=== PATIENT | female | born 1955 | race Caucasian/White ===

== ENCOUNTER 2016-11-22 22:54 | Emergency (ER) | payer MEDICAID ==
[2016-11-22] MEDS ORDERED: Nitroglycerin 0.4 MG Tab.SL SL ONE ×2 (23:15)
[2016-11-22] MEDS ORDERED: Metoprolol Tartrate 5 MG/5 ML SDV IVPUSH ONE (23:15)
[2016-11-22] MEDS ORDERED: Aspirin 81 MG Tab.Chew PO STA (23:16)
[2016-11-22 23:19] VITALS: BP 157/86
[2016-11-22] MEDS ORDERED: Nitroglycerin 0.4 MG Tab.SL ONE (23:20)
--- NOTE | 2016-11-22 23:21 | EDM.PDOC ---
ED HPI GENERAL MEDICAL PROBLEM - General Chief Complaint: Chest Pain Stated Complaint: CHEST PAIN Time Seen by Provider: 11/22/16 23:04 Source of Information: Reports: Patient, RN Notes Reviewed History Limitations: Reports: No Limitations - History of Present Illness INITIAL COMMENTS - FREE TEXT/NARRATIVE: The patient states that she was woken with central chest pain and entire left upper extremity pain at 22:00 tonight. She describes the pain as sharp. She states that it has been waxing and waning. She has not identified any modifiers. She is unsure if she has shortness of breath. She has had both nausea and emesis, and feels anxious. No diaphoresis. No prior similar symptoms. The patient's PCP is Dr. Christensen. Left Chest Pain Score (Numeric/FACES): 7 - Related Data Allergies Allergy/AdvReac Type Severity Reaction Status Date / Time atorvastatin calcium Allergy Cannot Verified 11/22/16 22:59 [From Lipitor] Remember rosuvastatin calcium Allergy Cannot Verified 11/22/16 22:59 [From Crestor] Remember Sulfa (Sulfonamide Allergy Cannot Verified 11/22/16 22:59 Antibiotics) Remember Home Meds: Home Meds Hydrochlorothiazide 25 mg PO DAILY 02/05/14 [History] Lisinopril 40 mg PO DAILY 02/05/14 [History] amLODIPine Besylate [Amlodipine Besylate] 10 mg PO DAILY 02/05/14 [History] rOPINIRole HCl [Requip] 2 mg PO BEDTIME 02/05/14 [History] Mometasone/Formoterol [Dulera 200-5 MCG] 2 puff INH BID 04/21/15 [History] Past Medical History HEENT History: Reports: Impaired Vision Other HEENT History: Wears Cardiovascular History: Reports: High Cholesterol, Hypertension Respiratory History: Reports: Asthma Gastrointestinal History: Reports: GERD Genitourinary History: Reports: Urinary Incontinence (stress incontinence) 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: - Past Surgical History HEENT Surgical History: Reports: Oral Surgery ([place] teeth extraction) Female Surgical History: Reports: Hysterectomy, Salpingo-Oophorectomy, Other (See Below) (Bladder suspension) Social & Family History - Tobacco Use Smoking Status *Q: Never Smoker - Alcohol Use Alcohol Use History: Yes Days Per Week of Alcohol Use: 0 Alcohol Use Frequency: Socially - Recreational Drug Use Recreational Drug Use: No - Living Situation & Occupation Living situation: Reports: , with Spouse Occupation: Unemployed ED ROS GENERAL - Review of Systems Review Of Systems: See Below Constitutional: Reports: No Symptoms HEENT: Reports: No Symptoms Respiratory: Reports: No Symptoms Cardiovascular: Reports: No Symptoms Endocrine: Reports: No Symptoms GI/Abdominal: Reports: No Symptoms : Reports: No Symptoms Musculoskeletal: Reports: No Symptoms Skin: Reports: No Symptoms Neurological: Reports: No Symptoms Psychiatric: Reports: No Symptoms Hematologic/Lymphatic: Reports: No Symptoms Immunologic: Reports: No Symptoms ED EXAM, GENERAL - Physical Exam Exam: See Below Exam Limited By: No Limitations General Appearance: Alert, WD/WN, Anxious Eye Exam: Bilateral Eye: Normal Inspection Ears: Normal External Exam, Hearing Grossly Normal Nose: Normal Inspection, No Blood Throat/Mouth: Normal Inspection, Normal Lips, Normal Voice, No Airway Compromise Head: Atraumatic, Normocephalic Neck: Normal Inspection, Full Range of Motion Respiratory/Chest: No Respiratory Distress, Lungs Clear, Normal Breath Sounds, No Accessory Muscle Use, Chest Non-Tender Cardiovascular: Normal Peripheral Pulses, Regular Rate, Rhythm, No Edema, No Gallop, No JVD, No Murmur, No Rub Peripheral Pulses: 4+: Radial (L), Radial (R) GI/Abdominal: Normal Bowel Sounds, Soft, Non-Tender, No Organomegaly, No Distention, No Abnormal Bruit, No Mass (Female) Exam: Deferred Rectal (Female) Exam: Deferred Back Exam: Normal Inspection, Full Range of Motion, NT Extremities: Normal Inspection, Normal Range of Motion, No Pedal Edema, Normal Capillary Refill, Other (The patient's left upper extremity is tender to palpation. She is unable to say whether or not it is the same pain that she came to the ED with.) Neurological: Alert, Oriented, Normal Cognition, No Motor/Sensory Deficits Psychiatric: Normal Affect, Anxious Skin Exam: Warm, Dry, Intact, Normal Color, No Rash EKG INTERPRETATION EKG Date: 11/22/16 Time: 23:00 Rhythm: Other (Sinus bradycardia) Rate (Beats/Min): 58 [place]: Normal P-Wave: Present QRS: Normal ST-T: Elevated (inferior leads) QT: Normal Course - Vital Signs Last Recorded V/S: Last Vital Signs Temp 36.2 C 11/22/16 22:59 Pulse 72 11/22/16 23:21 Resp 22 H 11/22/16 22:59 BP 157/86 H 11/22/16 23:24 Pulse Ox 100 11/22/16 22:59 - Orders/Labs/Meds Orders: Active Orders 24 hr Category Date Time Status EKG Documentation Completion [RC] STAT Care 11/22/16 23:04 Active Chest 1V Frontal [CR] Stat Exams 11/22/16 23:05 Ordered Heparin Sodium/D5W [Heparin 25,000 Units in D5W 500 ML] Med 11/22/16 23:30 Active 25,000 units in 500 ml IV TITRATE Medication Orders Heparin Sodium/Dextrose (Heparin 25,000 Units In D5w 500 Ml) 25,000 units in 500 mls @ 0 mls/hr IV TITRATE JJ; 17 UNITS/KG/HR PRN Reason: Protocol Last Admin: 11/22/16 23:25 Dose: 1,428 mls/hr Labs: Laboratory Tests 11/22/16 11/22/16 11/22/16 Range/Units 23:00 23:00 23:00 WBC 8.18 (3.98-10.04) K/mm3 RBC 4.75 (3.98-5.22) M/mm3 Hgb 14.6 (11.2-15.7) gm/L Hct 43.0 (34.1-44.9) % MCV 90.5 (79.4-94.8) fl MCH 30.7 (25.6-32.2) pg MCHC 34.0 (32.2-35.5) g/dl RDW Std Deviation 41.3 (36.4-46.3) fL Plt Count 245 (182-369) K/mm3 MPV 11.2 (9.4-12.3) fl Neutrophils % (Manual) 40 (40-60) % Band Neutrophils % 0 (0-10) % Lymphocytes % (Manual) 55 H (20-40) % Atypical Lymphs % 0 % Monocytes % (Manual) 5 (2-10) % Eosinophils % (Manual) 0 L (0.7-5.8) % Basophils % (Manual) 0 L (0.1-1.2) Platelet Estimate Adequate RBC Morph Comment Normal PT 9.9 (8.0-13.0) SECONDS INR 0.91 APTT 23 (22-36) SECONDS D-Dimer, Quantitative 0.91 H (0.19-0.59) mg/L Sodium 141 (136-145) mEq/L Potassium 3.8 (3.5-5.1) mEq/L Chloride 102 (98-107) mEq/L Carbon Dioxide 27 (21-32) mEq/L Anion Gap 15.8 H (5-15) BUN 23 H (7-18) mg/dL Creatinine 1.0 (0.55-1.02) mg/dL Est Cr Clr Drug Dosing 51.66 mL/min Estimated GFR (MDRD) 57 (>60) mL/min BUN/Creatinine Ratio 23.0 H (14-18) Glucose 124 H (74-106) mg/dL Calcium 10.1 (8.5-10.1) mg/dL Total Bilirubin 0.4 (0.2-1.0) mg/dL AST 27 (15-37) U/L ALT 51 (14-59) U/L Alkaline Phosphatase 114 (46-116) U/L Troponin I < 0.017 (0.00-0.056) ng/mL NT-Pro-B Natriuret Pep 27 (0-125) pg/mL Total Protein 7.6 (6.4-8.2) g/dl Albumin 3.9 (3.4-5.0) g/dl Globulin 3.7 gm/dL Albumin/Globulin Ratio 1.1 (1-2) Meds: Medications Generic Name Dose Route Start Last Admin Trade Name Freq PRN Reason Stop Dose Admin Heparin Sodium/Dextrose 25,000 units in 500 mls @ 0 mls/hr 11/22/16 23:30 11/29 23:25 Heparin 25,000 Units In D5w 500 Ml IV 1,428 mls/hr TITRATE JJ Administration Protocol 17 UNITS/KG/HR Discontinued Medications Generic Name Dose Route Start Last Admin Trade Name Freq PRN Reason Stop Dose Admin Aspirin 324 mg 11/22/16 23:16 11/22/16 23:20 Aspirin PO 11/22/16 23:17 324 mg ONETIME STA Administration Heparin Sodium (Porcine) 4,000 units 11/22/16 23:22 11/22/16 23:29 Heparin Sodium IVPUSH 11/22/16 23:23 4,000 units ONETIME ONE Administration Metoprolol Tartrate 5 mg 10/10/17 23:15 11/22/16 23:21 Lopressor IVPUSH 11/22/16 23:16 5 mg ONETIME ONE Administration Nitroglycerin 0.4 mg 11/22/16 23:15 11/22/16 23:17 Nitrostat SL 11/22/16 23:16 0.4 mg ONETIME ONE Administration Nitroglycerin 0.4 mg 11/22/16 23:15 11/22/16 23:24 Nitrostat SL 11/22/16 23:16 Not Given ONETIME ONE Nitroglycerin Confirm 11/22/16 23:20 11/22/16 23:24 Nitrostat Administered 11/22/16 23:21 Not Given Dose 0.4 mg .ROUTE .[facility] ONE - Re-Assessments/Exams Free Text/Narrative Re-Assessment/Exam: 11/22/16 23:33 As the patient's ECG appears to be an inferior wall STEMI, the patient was given 1 sublingual nitroglycerin. She believes that this has decreased her chest pain somewhat, but has not affected her left arm pain. The patient was given 5 mg IV Lopressor, 324 mg chewable aspirin, 4000 units heparin bolus, and will be started on a heparin drip. Case discussed with Dr. Fox at 23:24. He asked that I text him a picture of the patient's ECG. This was done. Dr. Fox called back at 23:32. Since the patient can be flown to their facility in about 45 minutes, he asked that we NOT give TNKase. 11/22/16 23:38 Portable chest radiograph appears to be grossly normal. Cardiac silhouette is within normal limits. No pulmonary vascular congestion. No pleural effusions. No focal infiltrate. No pneumothorax. Formal read per the Radiologist pending. Departure - Departure Time of Disposition: 23:35 Disposition: DC/Tfer to Acute Hospital 02 Reason for Transfer *Q: Primary PCI Indicated Condition: Serious Clinical Impression: ST elevation myocardial infarction (STEMI) of inferior wall - My Orders Last 24 Hours: My Active Orders 11/22/16 23:04 EKG Documentation Completion [RC] STAT 11/22/16 23:05 Chest 1V Frontal [CR] Stat 11/22/16 23:30 Heparin Sodium/D5W [Heparin 25,000 Units in D5W 500 ML] 25,000 units in 500 ml IV TITRATE - Assessment/Plan Last 24 Hours: My Active Orders 11/22/16 23:04 EKG Documentation Completion [RC] STAT 11/22/16 23:05 Chest 1V Frontal [CR] Stat 11/22/16 23:30 Heparin Sodium/D5W [Heparin 25,000 Units in D5W 500 ML] 25,000 units in 500 ml IV TITRATE
[2016-11-22] MEDS ORDERED: Heparin Sodium 5,000 Units/ML Vial IVPUSH ONE (23:22)
[2016-11-22] MEDS ORDERED: Heparin Sodium/D5W 25,000 UNITS/500 ML BAG IV SCH (23:30)
--- NOTE | 2016-11-23 08:21 | CR ---
Chest: Portable view of the chest was obtained. Comparison: Previous chest x-ray of 04/21/15. Heart size and mediastinum are within normal limits for portable technique. Lungs are clear. Bony structures are grossly intact. Impression: 1. Nothing acute is seen on portable chest x-ray. Diagnostic code #1
== END 2016-11-23 00:20 ==
LOC: JD.ED 22:54
DX: I21.19 ST elevation (STEMI) myocardial infarction involving other coronary artery of inferior wall (principal); Z88.8 Allergy status to other drugs, medicaments and biological substances; Z88.2 Allergy status to sulfonamides; Z79.899 Other long term (current) drug therapy
CPT/HCPCS: 36415; 71010; 80053; 83880; 84484; 85025; 85379; 85610; 85730; 93005; 96365; 96375; 99285; A9270; J1644; J3490

== ENCOUNTER 2024-03-03 13:15 | Emergency (ER) | payer MEDICARE, MEDICAID ==
[2024-03-03 14:00] LABS: BASOPHILS ABSOLUTE AUTO 0.1 K/mm3 (0.0-0.2); BASOPHILS PERCENT AUTO 0.6 % (0.0-1.0); EOSINOPHILS ABSOLUTE AUTO 0.2 K/mm3 (0.0-0.4); EOSINOPHILS PERCENT AUTO 2.2 % (0.0-6.0); HEMATOCRIT 41.4 % (37.0-47.0); HEMOGLOBIN 13.7 gm/dl (12.0-16.0); IMMATURE GRAN ABSOLUTE AUTO 0.03 K/mm3 (0.00-0.05); IMMATURE GRAN PERCENT AUTO 0.4 % (0.0-0.4); LYMPHOCYTES ABSOLUTE AUTO 2.1 K/mm3 (1.0-4.8); LYMPHOCYTES PERCENT AUTO 26.5 % (24.0-44.0); MEAN CORPUSCULAR HEMOGLOBIN 30.6 pg (28.0-32.0); MEAN CORPUSCULAR HGB CONC 33.1 g/dl (32.0-36.0); MEAN CORPUSCULAR VOLUME 92.6 fl (83.0-99.0); MEAN PLATELET VOLUME 11.7 fl (9.4-12.3); MONOCYTES ABSOLUTE AUTO 0.4 K/mm3 (0.0-0.8); MONOCYTES PERCENT AUTO 5.3 % (0.0-8.0); NEUTROPHILS ABSOLUTE AUTO 5.2 K/mm3 (1.8-7.7); PLATELET COUNT,PLT 242 K/mm3 (150-400); RED BLOOD CELL COUNT 4.47 M/mm3 (4.10-5.30); WHITE BLOOD CELL COUNT,WBC 8.07 K/mm3 (3.9-11.3)
[2024-03-03] MEDS: Sodium Chloride 0.9% 1,000 ML IV SCH (14:17)
[2024-03-03] MEDS: Ondansetron 4 MG/2 ML SDV IVPUSH ONE (14:17)
[2024-03-03 14:20] LABS: INR 1.02; PROTHROMBIN TIME 10.8 SECONDS (9.7-12.0)
[2024-03-03 14:22] LABS: PTT,PARTIAL THROMBOPLSTIN TIME 24.4 SECONDS (21.7-31.4)
[2024-03-03 14:32] LABS: ALBUMIN 3.7 g/dl (3.4-5.0); ANION GAP 15.3 (5-15); BILIRUBIN TOTAL 0.7 mg/dL (0.2-1.0); BUN/CREATININE RATIO 15.8 (14-18); CALCIUM 9.8 mg/dL (8.5-10.1); CREATININE 1.2 mg/dL (0.55-1.02); EST CRCL DRUG DOSING (CG) 34.33 mL/min; MAGNESIUM 1.9 mg/dL (1.8-2.4); POTASSIUM,K 4.3 mEq/L (3.5-5.1); PROTEIN TOTAL,TP 7.3 g/dl (6.4-8.2)
[2024-03-03 14:35] LABS: APPEARANCE,URINE CLEAR (Clear); BILIRUBIN,URINE NEGATIVE (Negative); COLOR,URINE YELLOW (Yellow); GLUCOSE,URINE NEGATIVE (Negative); KETONES,URINE NEGATIVE (Negative); LEUKOCYTE ESTERASE,URINE 2+ (Negative); NITRITE,URINE NEGATIVE (Negative); OCCULT BLOOD,URINE NEGATIVE (Negative); PROTEIN,URINE NEGATIVE (Negative); UROBILINOGEN,URINE 0.2 (0.2-1.0)
[2024-03-03 14:51] LABS: BACTERIA,URINE FEW /hpf (FEW); MUCUS,URINE FEW /hpf (FEW); RBC,URINE 0-5 /hpf (0-5)
[2024-03-03] MEDS: cefTRIAXone 2 GM in Sodium Chloride 0.9% 100 ML IV ONE (15:48)
[2024-03-03] MEDS: Alum Hydrox/Mag Hydrox/Simeth 30 ML, Lidocaine 2% 15 ML PO ONE (15:48)
[2024-03-03 19:28] VITALS: BP 133/82; PULSE 66
== END 2024-03-03 17:43 | disposition home or self-care (01) ==
LOC: JD.ED 13:15
DX: R42 Dizziness and giddiness (principal); R10.13 Epigastric pain; I10 Essential (primary) hypertension; I25.2 Old myocardial infarction; K21.9 Gastro-esophageal reflux disease without esophagitis; J45.909 Unspecified asthma, uncomplicated; Z90.710 Acquired absence of both cervix and uterus; Z88.2 Allergy status to sulfonamides; Z88.8 Allergy status to other drugs, medicaments and biological substances; Z79.82 Long term (current) use of aspirin; Z79.51 Long term (current) use of inhaled steroids; Z79.899 Other long term (current) drug therapy
CPT/HCPCS: 36415; 71045; 80053; 81001; 83735; 83880; 84484; 85025; 85610; 85730; 87086; 93005; 96361; 96365; 96375; 99284; A9270; J0696; J2405; J7030

== ENCOUNTER 2024-05-03 12:43 | Emergency (ER) | payer MEDICARE, MEDICAID ==
[2024-05-03 13:22] LABS: BASOPHILS ABSOLUTE AUTO 0.1 K/mm3 (0.0-0.2); BASOPHILS PERCENT AUTO 0.8 % (0.0-1.0); EOSINOPHILS ABSOLUTE AUTO 0.1 K/mm3 (0.0-0.4); EOSINOPHILS PERCENT AUTO 1.8 % (0.0-6.0); HEMATOCRIT 44.1 % (37.0-47.0); HEMOGLOBIN 15.1 gm/dl (12.0-16.0); IMMATURE GRAN ABSOLUTE AUTO 0.02 K/mm3 (0.00-0.05); IMMATURE GRAN PERCENT AUTO 0.3 % (0.0-0.4); LYMPHOCYTES ABSOLUTE AUTO 1.7 K/mm3 (1.0-4.8); LYMPHOCYTES PERCENT AUTO 27.8 % (24.0-44.0); MEAN CORPUSCULAR HEMOGLOBIN 31.8 pg (28.0-32.0); MEAN CORPUSCULAR HGB CONC 34.2 g/dl (32.0-36.0); MEAN CORPUSCULAR VOLUME 92.8 fl (83.0-99.0); MEAN PLATELET VOLUME 11.2 fl (9.4-12.3); MONOCYTES ABSOLUTE AUTO 0.5 K/mm3 (0.0-0.8); MONOCYTES PERCENT AUTO 8.2 % (0.0-8.0); NEUTROPHILS ABSOLUTE AUTO 3.8 K/mm3 (1.8-7.7); NEUTROPHILS PERCENT AUTO 61.1 % (41.0-71.0); PLATELET COUNT,PLT 201 K/mm3 (150-400); RED BLOOD CELL COUNT 4.75 M/mm3 (4.10-5.30); WHITE BLOOD CELL COUNT,WBC 6.22 K/mm3 (3.9-11.3)
[2024-05-03] MEDS: Aspirin 81 MG Tab.Chew PO ONE (13:35)
[2024-05-03] MEDS: Nitroglycerin 0.3 MG Tab.SL SL ONE (13:37)
[2024-05-03 13:42] LABS: ALBUMIN 3.5 g/dl (3.4-5.0); ANION GAP 15.1 (5-15); BILIRUBIN TOTAL 0.5 mg/dL (0.2-1.0); BUN/CREATININE RATIO 17.8 (14-18); CALCIUM 9.8 mg/dL (8.5-10.1); CREATININE 0.9 mg/dL (0.55-1.02); EST CRCL DRUG DOSING (CG) 45.77 mL/min; POTASSIUM,K 4.1 mEq/L (3.5-5.1)
[2024-05-03] MEDS: Ondansetron 4 MG/2 ML SDV IVPUSH ONE (13:59)
[2024-05-03 14:03] VITALS: PULSE 70
[2024-05-03] MEDS: Iopamidol 755 Mg/ML 100 ML Bottle IVPUSH ONE (14:15)
[2024-05-03] MEDS: Sodium Chloride 0.9% 10 ML Syringe FLUSH ONE (14:15)
[2024-05-03] MEDS: Sodium Chloride 0.9% 100 ML IV SCH (14:15)
[2024-05-03] MEDS ORDERED: hydrALAZINE 20 MG/ML SDV IVPUSH ONE (14:29)
[2024-05-03] MEDS: Lisinopril 10 MG Tab PO ONE (15:28)
[2024-05-03 15:30] VITALS: BP 188/94
== END 2024-05-03 17:05 | disposition home or self-care (01) ==
LOC: JD.ED 12:43
DX: R07.89 Other chest pain (principal); I10 Essential (primary) hypertension; I25.2 Old myocardial infarction; J45.909 Unspecified asthma, uncomplicated; K21.9 Gastro-esophageal reflux disease without esophagitis; Z90.710 Acquired absence of both cervix and uterus; Z88.2 Allergy status to sulfonamides; Z88.8 Allergy status to other drugs, medicaments and biological substances; Z79.82 Long term (current) use of aspirin; Z79.51 Long term (current) use of inhaled steroids; Z79.899 Other long term (current) drug therapy
CPT/HCPCS: 36415; 71045; 71045-26; 71275; 71275-26; 80053; 83880; 84484; 85025; 85379; 93005; 96374; 99285-25; A9270-GY; J2405; Q9967